=== PATIENT | female | born 1960 ===

== ENCOUNTER → 2022-06-27 13:53 | Outpatient (CLI) | payer OTHER | END | disposition home or self-care (01) | LOC: LAB 13:53 | DX: I63.531 Cerebral infarction due to unspecified occlusion or stenosis of right posterior cerebral artery (principal) ==

== ENCOUNTER 2022-07-27 10:22 | Outpatient (CLI) | payer OTHER | END 2022-07-27 10:28 | disposition home or self-care (01) | LOC: MRI 10:22 | PROVIDERS: ATTEND General Practice | DX: I63.531 Cerebral infarction due to unspecified occlusion or stenosis of right posterior cerebral artery (principal) | CPT/HCPCS: 70553; Q9965 ==

== ENCOUNTER → 2024-06-05 13:56 | Outpatient (CLI) | payer OTHER ==
[2024-06-05 15:33] LABS: CREATININE SERUM 0.73 mg/dL (0.55-1.02); GFR 81.05
== END | disposition home or self-care (01) ==
LOC: LAB 13:56
PROVIDERS: ATTEND Radiology Diagnostic Radiology
DX: R19.09 Other intra-abdominal and pelvic swelling, mass and lump (principal)

== ENCOUNTER 2024-06-18 07:32 | Outpatient (CLI) | payer OTHER | END 2024-06-18 07:34 | disposition home or self-care (01) | LOC: TOM 07:32 | DX: R19.09 Other intra-abdominal and pelvic swelling, mass and lump (principal) | CPT/HCPCS: 74177; Q9965 ==